=== PATIENT | male | born 2000 | race Caucasian/White ===

== ENCOUNTER 2021-09-29 23:39 | Emergency (ER) | payer OTHER ==
[2021-09-30 00:47] LABS: BASOPHIL 0.2 % (0-2); EOSINOPHIL 0 % (0-5); HCT 45.8 % (42.0-52.0); HGB 15.5 g/dl (13.2-18.0); LYMPHOCYTE 2.2 % (15-48); MCH 30.4 pg (25.0-31.0); MCHC 33.8 g/dL (32.0-36.0); MCV 89.8 fL (78.0-100.0); MONOCYTE 2.1 % (0-12); MPV 8.9 fL (6.0-9.5); NRBC 0; PLT 402 K/uL (150-400); RDW 11.6 % (11.5-14.0); WBC 25.3 K/uL (4.0-10.5)
[2021-09-30 00:57] LABS: NEUTROPHIL 94.8 % (41-80)
[2021-09-30 01:14] LABS: ALBUMIN 4.2 g/dL (3.4-5.0); ALKALINE PHOSHATASE 74 U/L (46-116); ALT 50 U/L (16-63); AST 17 U/L (15-37); BILIRUBIN - TOTAL 1.2 mg/dL (0.2-1.0); BUN 15 mg/dL (7-18); CHLORIDE 101 mmol/L (98-107); CO2 (BICARBONATE) 29 mmol/L (21-32); CREATININE 0.99 mg/dL (0.67-1.17); GLOBULIN (CALCULATION) 4.5 g/dL; GLUCOSE 111 mg/dL (74-106); LIPASE 226 U/L (73-393); POTASSIUM 3.9 mmol/L (3.5-5.1); TOTAL PROTEIN 8.7 g/dL (6.4-8.2)
[2021-09-30 01:56] LABS: LACTIC ACID 0.8 mmol/L (0.4-1.9)
[2021-09-30 01:59] LABS: BILIRUBIN 1+ mg/dL (NEGATIVE); BLOOD 3+ Ery/uL (NEGATIVE); CLARITY CLEAR (CLEAR); COLOR YELLOW (YELLOW); GLUCOSE (U) NORMAL (NORMAL); LEUKOCYTES NEGATIVE Leu/uL (NEGATIVE); NITRITE NEGATIVE (NEGATIVE); PROTEIN 1+ mg/dL (NEGATIVE); SPECIFIC GRAVITY >=1.030 (1.001-1.030); UROBILINOGEN 0.2 mg/dL (0.2-1.0); pH 5.5 (5.0-9.0)
[2021-09-30 02:11] LABS: AMPHETAMINES NEGATIVE (NEGATIVE); BARBITURATES NEGATIVE (NEGATIVE); ECSTASY (MDMA) NEGATIVE (NEGATIVE); MARIJUANA (THC) NEGATIVE (NEGATIVE); METHADONE NEGATIVE (NEGATIVE); OPIATES NEGATIVE (NEGATIVE); OXYCODONE NEGATIVE (NEGATIVE)
[2021-09-30 02:22] LABS: AMORPHOUS URATES CRYSTALS LARGE; BACTERIA 1+
[2021-09-30] MEDS ORDERED: ONDANSETRON ODT4 MG PO (04:01)
[2021-10-01 22:09] LABS: CHLAMYDIA TRACHOMATIS, NAA Negative (Negative); NEISSERIA GONORRHOEAE, NAA Negative (Negative)
== END 2021-09-30 04:54 | disposition home or self-care (01) ==
LOC: FER 23:39
PROVIDERS: Emergency Medicine
DX: U07.1 COVID-19 (principal)
CPT/HCPCS: 36415; 80053; 80305; 81001; 83605; 83690; 85025; 87040; 87088; 87491; 87591; G0480; J1170; J1885; J2405; J2543; J7030; Q9967; U0002